=== PATIENT | male | born 1975 | race Caucasian/White ===

== ENCOUNTER 2021-07-27 07:24 | Day surgery (SDC) | payer BC ==
[2021-07-23 10:32] VITALS: BMI 26.2
[~2021-07-27 07:24] MED LIST: LACTATED RINGERS 1,000 ML IV SCH; LIDOCAINE 1% (10MG/ML) FOR IV START INTRADERMA PRN
[2021-07-27 07:38] VITALS: TEMP 98
[2021-07-27] MEDS ORDERED: PROPOFOL 10 MG/ML 20 ML VIAL IV ONE (08:01)
--- NOTE | 2021-07-27 08:07 | P.GSHP ---
History of Present Illness H&P Date: 07/27/21 Chief Complaint: Screening, history of polyps Patient here today for colonoscopy. Last colonoscopy 7 years ago. No current bowel complaints. No family history of colon cancer. Patient has had problems before unknown type. Past Medical History Past Medical History: Hypertension Additional Past Medical History / Comment(s): hx bleeding from rectal fissure, benign colon polyps History of Any Multi-Drug Resistant Organisms: None Reported Additional Past Surgical History / Comment(s): colonoscopy Past Anesthesia/Blood Transfusion Reactions: No Reported Reaction Smoking Status: Never smoker - Past Family History Father Family Medical History: Cancer Additional Family Medical History / Comment(s): lung Medications and Allergies Home Medications Medication Instructions Recorded Confirmed Type lisinopriL [Zestril] 20 mg PO HS 07/23/21 07/23/21 History Allergies Allergy/AdvReac Type Severity Reaction Status Date / Time No Known Allergies Allergy Verified 07/23/21 10:26 Surgical - Exam Vital Signs Temp Pulse Resp BP Pulse Ox 98 F 62 16 142/76 98 07/27/21 07:37 07/27/21 07:37 07/27/21 07:37 07/27/21 07:37 07/27/21 07:37 Physical exam: General: Well-developed, well-nourished HEENT: Normocephalic, sclerae nonicteric Abdomen: Nontender, nondistended Extremities: No edema Neuro: Alert and oriented Assessment and Plan (1) Colon cancer screening Narrative/Plan: Will proceed with colonoscopy at this Current Visit: Yes Status: Acute Code(s): Z12.11 - ENCOUNTER FOR SCREENING FOR MALIGNANT NEOPLASM OF COLON SNOMED Code(s): 376747098
--- NOTE | 2021-07-27 08:21 | P.PCN ---
Date of Procedure: 07/27/21 Procedure(s) Performed: PREOPERATIVE DIAGNOSIS: Colon cancer screening, history of polyps unknown type POSTOPERATIVE DIAGNOSIS: Small rectal polyp PROCEDURE: Colonoscopy with snare polypectomy ANESTHESIA: MAC SURGEON: Robert Serrano M.D. SPECIMENS: Rectal polyp ENDOSCOPIC PROCEDURE: The patient was placed on the endoscopy table in the left decubitus position. The Olympus colonoscope was inserted into the anus and passed under direct visualization to the base of the cecum. The appendiceal orifice was visualized. From that point the scope was slowly withdrawn inspecting all surfaces carefully. There were no neoplastic inflammatory or polypoid lesions throughout the cecum, ascending, transverse, descending, and sigmoid colon. The rectum there was noted be a very small superficial polyp that was likely hyperplastic. This was removed using the snare with cautery technique as there was a vessel seen just deep to that area. Most of the polyp was fulgurated. Specimen was limited. Remainder of the rectum was normal. There was no visible diverticulosis. Digital rectal examination was normal. The patient was taken to the recovery room in stable condition per anesthesia guidelines. RECOMMENDATIONS: Await biopsy results. Anticipate benign findings. Anticipate follow-up colonoscopy 7 years.
[2021-07-27 09:25] VITALS: BP 122/74; PULSE 88; RESP 16
== END 2021-07-27 09:27 | disposition home or self-care (01) ==
LOC: ORWHC2ENDO 07:24
PROVIDERS: ATTEND Surgery
DX: Z12.11 Encounter for screening for malignant neoplasm of colon (principal); K62.1 Rectal polyp; Z86.010 Personal history of colon polyps; I10 Essential (primary) hypertension; Z87.19 Personal history of other diseases of the digestive system; Z80.1 Family history of malignant neoplasm of trachea, bronchus and lung; Z79.899 Other long term (current) drug therapy
CPT/HCPCS: 88305; 45385; J2704

== ENCOUNTER → 2023-06-15 | Outpatient (CLI) | payer BC ==
--- NOTE | 2023-06-15 08:03 | US ---
EXAMINATION TYPE: US liver DATE OF EXAM: 06/15/2023 COMPARISON: NONE CLINICAL INDICATION: Male, 48 years old with history of R74.8 ABNORMAL LEVELS OF OTHER SERUM ENZYMES; Elevated liver enzymes TECHNIQUE: Multiple sonographic images of the right upper quadrant are obtained. FINDINGS: EXAM MEASUREMENTS: Liver Length: 14.7 cm Gallbladder Wall: 0.2 cm CBD: 0.4 cm Right Kidney: 11.1 x 5.0 x 5.9 cm Pancreas: visualized portions wnl, limited by overlying midline bowel gas Liver: scanned intercostally, mildly heterogeneous Gallbladder: wnl Evidence for sonographic Juarez's sign: no CBD: visualized portions wnl, limited by overlying bowel gas Right Kidney: wnl IMPRESSION: 1. Hepatocellular disease commonly relating to hepatic steatosis. 2. No evidence for acute process.
== END | disposition home or self-care (01) ==
LOC: RADUSWWP 06:57
PROVIDERS: ATTEND Family Medicine
DX: K76.0 Fatty (change of) liver, not elsewhere classified (principal); R74.8 Abnormal levels of other serum enzymes
CPT/HCPCS: 76705

== ENCOUNTER → 2023-08-29 | Outpatient (CLI) | payer BC ==
--- NOTE | 2023-09-02 06:46 | MR ---
EXAMINATION TYPE: MR knee RT wo con DATE OF EXAM: 08/29/2023 COMPARISON: Outside right knee x-ray August 25, 2023 HISTORY: Right knee medial pain with locking and swelling since summer, hx of sports injuries. TECHNIQUE: Multiplanar, multisequence images of the knee is performed without IV contrast. FINDINGS: MEDIAL MENISCUS: Abnormal irregular linear signal posterior horn medial meniscus extends to articular surface. LATERAL MENISCUS: Anterior and posterior horns are intact without tear. CRUCIATE LIGAMENTS: The anterior and posterior cruciate ligaments are intact and unremarkable. COLLATERAL LIGAMENTS: The medial collateral ligament and lateral collateral ligament complex are inta ct and unremarkable. EXTENSOR MECHANISM: Visualized quadriceps and patellar tendons are intact. EFFUSION: Small size suprapatellar joint effusion. POPLITEAL CYST: Moderate-sized septated popliteal/carpenter cyst measuring roughly 5.5 cm long axis sagit charly image 9. TRICOMPARTMENT SPACES: Mild to moderate tricompartment joint space loss without significant spurring. CARTILAGE: Some cartilaginous loss medial aspect of the medial tibiofemoral compartment. Some chondro malacia patella with fissuring along the posterior aspect of the patella pole. BONE MARROW SIGNAL: No focal abnormal marrow signal is appreciated. OTHER: No additional significant abnormality is appreciated. IMPRESSION: 1. Full-thickness tear posterior horn medial meniscus. 2. Mild to moderate tricompartment degenerative changes as detailed above. 3. Small-sized suprapatellar joint effusion. 4. Moderate-size septated popliteal cyst.
== END | disposition home or self-care (01) ==
LOC: RADMRIMAIN 11:00
PROVIDERS: ATTEND Orthopaedic Surgery
DX: M17.11 Unilateral primary osteoarthritis, right knee (principal); M23.321 Other meniscus derangements, posterior horn of medial meniscus, right knee; M71.21 Synovial cyst of popliteal space [Baker], right knee; M25.461 Effusion, right knee

== ENCOUNTER → 2023-09-13 | Outpatient (CLI) | payer BC ==
[2023-09-14 02:38] LABS: Basophils # (A) 0.04 X 10*3/uL (0.00-0.10); Basophils % (A) 0.5 %; Eosinophils # (A) 0.07 X 10*3/uL (0.04-0.35); Eosinophils % (A) 0.9 %; HCT 41.4 % (39.6-50.0); Lymphocytes # (A) 2.87 X 10*3/uL (0.90-5.00); Lymphocytes % (A) 38.2 %; MCH 32.7 pg (27.0-32.0); MCHC 33.8 g/dL (32.0-37.0); MCV 96.7 FL (80.0-97.0); Mean Platelet Volume 8.9 FL (9.5-12.2); Monocytes # (A) 0.41 X 10*3/uL (0.20-1.00); Monocytes % (A) 5.5 %; NRBC Per 100 WBC 0 X 10*3/uL (0.00-0.01); Neutrophils # (A) 4.11 X 10*3/uL (1.80-7.70); Neutrophils % (A) 54.6 %; Platelet Count 279 X 10*3/uL (140-440); RBC 4.28 X 10*6/uL (4.40-5.60); RDW 12.5 % (11.5-14.5); WBC 7.52 X 10*3/uL (4.50-10.00)
[2023-09-14 02:57] LABS: BUN/Creat Ratio 14.46 Ratio (12.00-20.00); Blood Urea Nitrogen 18.8 mg/dL (9.0-27.0); Carbon Dioxide 25.1 mmol/L (21.6-31.8); Chloride 100 mmol/L (96-109); Glucose 87 mg/dL (70-110); Potassium 4.5 mmol/L (3.5-5.5); Sodium 137 mmol/L (135-145)
== END | disposition home or self-care (01) ==
LOC: LABPAT 13:52
PROVIDERS: ATTEND Orthopaedic Surgery
DX: Z01.812 Encounter for preprocedural laboratory examination (principal); M23.91 Unspecified internal derangement of right knee
CPT/HCPCS: 36415; 80048; 85025

== ENCOUNTER 2023-09-29 06:11 | Day surgery (SDC) | payer BC ==
[2023-09-26 13:45] VITALS: BMI 26.7
--- NOTE | 2023-09-28 09:16 | P.HPOR ---
History of Present Illness H&P Date: 09/28/23 Chief Complaint: Right knee pain The patient is a 48-year-old male who presents the right knee pain increasing with the past 6 months. He notes medial pain along with swelling and locking. He notes his symptoms have been worsening. He tried medications in addition to activity modifications without any relief. He notes daily pain that limits him. Review of Systems Negative except as in HPI Past Medical History Past Medical History: Hypertension Additional Past Medical History / Comment(s): hx bleeding from rectal fissure, benign colon polyps History of Any Multi-Drug Resistant Organisms: None Reported Additional Past Surgical History / Comment(s): colonoscopy Past Anesthesia/Blood Transfusion Reactions: No Reported Reaction Smoking Status: Never smoker - Past Family History Father Family Medical History: Cancer Additional Family Medical History / Comment(s): lung Medications and Allergies Home Medications Medication Instructions Recorded Confirmed Type lisinopriL 40 mg PO DAILY 09/26/23 09/26/23 History Allergies Allergy/AdvReac Type Severity Reaction Status Date / Time No Known Allergies Allergy Verified 09/26/23 13:26 Physical Examination - Knee right Appearance: effusion Effusion grade: trace Tenderness with palpation: medial Pain: with flexion ROM: extension: -5 degrees ROM: flexion: 120 degrees Strength: extension: 5/5 Strength: flexion: 5/5 Meniscal tests: medial meniscal tests: positive, medial joint line pain: positive Results The patient is a well-developed well-nourished male approximately 6 foot 4, 220 pounds of mesomorphic habitus. HEENT exam is nonfocal, neck supple. He has painless passive motion of the right hip. Straight leg raise is negative. He's tender about the medial joint line of the right knee. Collaterals stable, Joshua is negative, Geremias's elicits medial pain. His distal neurovascular appears intact in the right lower extremity. - Diagnostic results Knee MRI: image reviewed (MRI of the right knee shows evidence of a posterior medial meniscal tear.) Assessment and Plan Assessment: Right knee internal derangement/symptomatic medial meniscal tear Plan: I talked with the patient at length regarding his condition along with treatment options. At this point he is quite symptomatic having pain and mechanical symptoms despite attempted conservative measures. After thorough discussion he opted to proceed with surgery. We'll proceed with right knee arthroscopy with probable partial medial meniscectomy. Risks and benefits were discussed at length in layman's terms. We will likely perform that as an outpatient procedure.
[~2023-09-29 06:11] MED LIST changes: -LACTATED RINGERS 1,000 ML IV SCH; -LIDOCAINE 1% (10MG/ML) FOR IV START INTRADERMA PRN; +SCOPOLAMINE 1 MG/72 HR PATCH TRANSDERM ONE
[2023-09-29] MEDS ORDERED: MIDAZOLAM 2 MG/2 ML VIAL IV PRN (07:00)
[2023-09-29] MEDS: LACTATED RINGERS 1,000 ML IV SCH (07:02)
[2023-09-29] MEDS: DEXAMETHASONE SOD PHOSPHATE 4 MG/ML 1 ML VIAL IV ONE (07:04)
[2023-09-29] MEDS: ONDANSETRON 4 MG/2 ML VIAL IVP ONE (07:04)
[2023-09-29] MEDS: LIDOCAINE 1% (10MG/ML) FOR IV START INTRADERMA ONE (07:04)
[2023-09-29] MEDS: EPINEPHrine (PF) 1 ML in SODIUM CHLORIDE 0.9% IRRIGATIO 3,000 ML IRRIGATION ONE (07:27)
[2023-09-29] MEDS ORDERED: KETOROLAC 30 MG/ML 1 ML VIAL ONE (07:28)
[2023-09-29] MEDS ORDERED: ePHEDrine 50 MG/ML 1 ML VIAL ONE (07:28)
[2023-09-29] MEDS ORDERED: GLYCOPYRROLATE 0.2 MG/ML 2 ML VIAL ONE (07:28)
[2023-09-29] MEDS ORDERED: MIDAZOLAM 2 MG/2 ML VIAL ONE (07:28)
[2023-09-29] MEDS ORDERED: PROPOFOL 10 MG/ML 20 ML VIAL IV ONE (07:28)
[2023-09-29] MEDS ORDERED: fentaNYL (PF) 50 MCG/ML 2 ML AMP ONE (07:28)
[2023-09-29] MEDS ORDERED: LIDOCAINE 1% INJ 10MG/ML (20 ML MDV) ONE (07:28)
--- NOTE | 2023-09-29 08:21 | P.OP ---
Date of Procedure: 09/29/23 Preoperative Diagnosis: Right knee internal derangement Postoperative Diagnosis: Right knee posterior medial meniscal tear Procedure(s) Performed: Right knee arthroscopic partial medial meniscectomy Anesthesia: HARLEYA Surgeon: Gavin Warner Estimated Blood Loss (ml): 10 Pathology: none sent Condition: stable Disposition: PACU Indications for Procedure: The patient's a 48-year-old male who presents with progressive right knee pain and mechanical symptoms despite conservative measures. A discussion of the risks and benefits of operative intervention versus continued conservative measures was made with patient. He opted to proceed with surgery. Operative versus include infection, neurovascular injury, development of blood clots, possible incomplete resolution of symptoms, possible worsening symptoms and need for subsequent procedures was discussed. Informed consent was obtained. Operative Findings: as below Description of Procedure: The patient was brought to the operating room, and after induction of general anesthesia examined the right knee. Collaterals were stable, Joshua was negative, and posterior drawer was negative. The right lower extremity was prepped and draped in a normal fashion. A superior lateral portal was made through a 3 mm skin incision superior and lateral to the patella. This was used for outflow. A lateral portal was made through a 5 mm vertical skin incision lateral to the patella tendon above the joint line. Diagnostic arthroscopy was performed. On inspection of the medial compartment thumb of there was an oblique tear involving the posterior horn of the medial meniscus in the white- white junction. This was debrided back to stable base with straight baskets and a motorized shaver. The remaining posterior medial meniscus was probed and felt to be stable. Minimal degenerative changes involving medial compartment were noted On inspection of the notch, the anterior cruciate ligament appeared to be intact. On inspection of the lateral compartment, no significant cartilage or meniscal pathology was noted. On inspection of the patellofemoral articulation there is chondral fibrillation however no loose chondral fragments. The gutters were clear debris. The knee was then thoroughly irrigated. The portals were closed with Steri-Strips. A sterile dressing was applied in addition to a compression stocking. The patient was awoken from general anest hesia and transferred to recovery room in good condition. Blood loss was estimated at 10 mL. No complications were incurred.
[2023-09-29] MEDS: LACTATED RINGERS 1,000 ML IV ONE (08:34)
[2023-09-29] MEDS: HYDROmorphone 0.5 MG/0.5 ML SYRINGE IVP PRN (08:35)
[2023-09-29 08:51] VITALS: TEMP 98
[2023-09-29] MEDS ORDERED: HYDROcodone/APAP 5-325MG 1 EACH TAB ONE (09:16)
[2023-09-29] MEDS: HYDROcodone/APAP 5-325MG 1 EACH TAB PO ONE (09:17)
[2023-09-29 09:57] VITALS: BP 131/83; PULSE 70; RESP 18
== END 2023-09-29 10:16 | disposition home or self-care (01) ==
LOC: OR 06:11
PROVIDERS: ATTEND Orthopaedic Surgery
DX: S83.241A Other tear of medial meniscus, current injury, right knee, initial encounter (principal); M17.11 Unilateral primary osteoarthritis, right knee; I10 Essential (primary) hypertension; Z79.899 Other long term (current) drug therapy; X58.XXXA Exposure to other specified factors, initial encounter
CPT/HCPCS: 29881; J2250; J1100; J0690; J2405; J0171; J2001; J3010; J1885; J2704; J1170